=== PATIENT | female | born 1990 ===

== ENCOUNTER 2018-11-04 10:08 | Emergency (ER) | payer OTHER ==
[2018-11-04] MEDS ORDERED: CYCLOBENZAPRINE10 M1 PO (11:44)
[2018-11-04 12:00] VITALS: BP 126/88
== END 2018-11-04 12:10 | disposition home or self-care (01) ==
LOC: ED 10:08
DX: M25.511 Pain in right shoulder (principal); M25.532 Pain in left wrist; V44.9XXA Unspecified car occupant injured in collision with heavy transport vehicle or bus in traffic accident, initial encounter; Y92.411 Interstate highway as the place of occurrence of the external cause